=== PATIENT | female | born 1945 | race Caucasian/White ===

== ENCOUNTER → 2017-05-20 | Outpatient (CLI) | payer MEDICARE, SELFPAY | PROVIDERS: Visit Provider Nurse Practitioner | DX: E87.6 Hypokalemia (principal) | CPT/HCPCS: 36415; 80048 ==

== ENCOUNTER → 2017-05-25 | Outpatient (POV) | payer MEDICARE, SELFPAY | PROVIDERS: Family Provider Family Medicine; PCP Family Medicine; Visit Provider Internal Medicine | DX: C34.11 Malignant neoplasm of upper lobe, right bronchus or lung (principal) | CPT/HCPCS: 99214; 36415; 80053; 84443; 85025 ==

== ENCOUNTER 2017-06-09 10:05 | Outpatient (CLI) | payer MEDICARE, SELFPAY ==
[2017-06-09] VITALS (13 sets, daily range): BP systolic 88–129; BP diastolic 43–78; PULSE 70–84; RESP 16–18; TEMP 36.5; O2SAT 94; BMI 22.9
[2017-06-09 10:48] LABS: Basophils % 0.5 % (0.1-2.0); Eosinophils # 0.1 K/mm3 (0.0-0.4); Eosinophils % 2.2 % (0.1-12.0); Hematocrit 51.8 % (37.0-47.0); Lymphocytes # 1.1 K/mm3 (0.7-4.5); Lymphocytes % 16.4 K/mm3 (10-50); Mean Corpuscular HGB Conc 32.8 g/dL (31.8-35.4); Mean Corpuscular Hemoglobin 34.6 pg (27.0-31.2); Mean Corpuscular Volume 105.4 fl (81-99); Mean Platelet Volume 7.9 fl (7.4-10.4); Monocytes # 0.5 K/mm3 (0.1-1.0); Monocytes % 7.2 % (1.7-9.3); Neutrophils # 4.7 K/mm3 (1.8-7.8); Neutrophils % 73.7 % (37.0-80.0); Platelet Count 275 K/mm3 (142-424); Red Blood Count 4.92 M/mm3 (4.20-5.40); Red Cell Distribution Width 14.5 % (11.5-17.5); White Blood Count 6.4 K/mm3 (4.8-10.8)
[2017-06-09 10:58] LABS: Alanine Aminotransferase 17 U/L (12-78); Albumin Level 3.3 gm/dL (3.4-5.0); Albumin/Globulin Ratio 1.1 (1.1-1.8); Alkaline Phosphatase 85 U/L (46-116); Anion Gap 10.8 mEq/L (5-15); Aspartate Amino Transferase 16 U/L (15-37); Bilirubin,Total 0.5 mg/dL (0.2-1.0); Blood Urea Nitrogen 7 mg/dL (7-18); Calcium 8.9 mg/dL (8.5-10.1); Carbon Dioxide 30 mmol/L (21.0-32.0); Chloride 100 mmol/L (98-107); Creatinine Clearance Estimated 38 mL/min (0-300); Creatinine,Serum 0.54 mg/dL (0.55-1.02); Estimated Glomerular Filt Rate 111 ml/min (>60); GFR (African American) 134 ML/MIN (>60); Glucose 93 mg/dL (74-106); Potassium 3.8 mmoL/L (3.5-5.1); Sodium 137 mmol/L (136-145); Total Protein,Serum 6.3 gm/dL (6.4-8.2)
--- NOTE | 2017-06-09 12:42 | PC.NURSE ---
NIVOLUMAB 47 MG STARTED INFUSING AT THIS TIME (1200).
--- NOTE | 2017-06-09 15:48 | PC.NURSE ---
240 ML INFUSED INCLUDES NS, NIVOLUMAB, AND IPILIMUMAB.
== END 2017-06-09 15:15 | disposition home or self-care (01) ==
LOC: INF 12:07
PROVIDERS: Family Provider Family Medicine; PCP Family Medicine; Visit Provider Internal Medicine
DX: C34.90 Malignant neoplasm of unspecified part of unspecified bronchus or lung (principal); Z51.11 Encounter for antineoplastic chemotherapy
CPT/HCPCS: 80053; 85025; 96413; 96415; 96417; J9228; J9299

== ENCOUNTER → 2017-06-15 09:00 | Outpatient (CLI) | payer MEDICARE, SELFPAY ==
[2017-06-15 08:56] VITALS: BMI 22.5
[2017-06-15 09:13] LABS: Basophils % 0.5 % (0.1-2.0); Eosinophils # 0.2 K/mm3 (0.0-0.4); Eosinophils % 2.3 % (0.1-12.0); Hematocrit 51.5 % (37.0-47.0); Hemoglobin 16.7 g/dL (12.2-16.2); Lymphocytes # 1.1 K/mm3 (0.7-4.5); Lymphocytes % 14.2 K/mm3 (10-50); Mean Corpuscular HGB Conc 32.5 g/dL (31.8-35.4); Mean Corpuscular Hemoglobin 34.6 pg (27.0-31.2); Mean Corpuscular Volume 106.3 fl (81-99); Mean Platelet Volume 7.9 fl (7.4-10.4); Monocytes # 0.5 K/mm3 (0.1-1.0); Monocytes % 6.8 % (1.7-9.3); Neutrophils % 76.2 % (37.0-80.0); Platelet Count 284 K/mm3 (142-424); Red Blood Count 4.84 M/mm3 (4.20-5.40); Red Cell Distribution Width 14.6 % (11.5-17.5); White Blood Count 7.9 K/mm3 (4.8-10.8)
[2017-06-15 09:22] LABS: Alanine Aminotransferase 15 U/L (12-78); Albumin Level 3.3 gm/dL (3.4-5.0); Albumin/Globulin Ratio 1.1 (1.1-1.8); Alkaline Phosphatase 94 U/L (46-116); Anion Gap 10.4 mEq/L (5-15); Aspartate Amino Transferase 15 U/L (15-37); Bilirubin,Total 0.5 mg/dL (0.2-1.0); Blood Urea Nitrogen 7 mg/dL (7-18); Calcium 8.8 mg/dL (8.5-10.1); Carbon Dioxide 29 mmol/L (21.0-32.0); Chloride 98 mmol/L (98-107); Creatinine Clearance Estimated 37 mL/min (0-300); Creatinine,Serum 0.55 mg/dL (0.55-1.02); Estimated Glomerular Filt Rate 108 ml/min (>60); GFR (African American) 131 ML/MIN (>60); Globulin 3.1 gm/dl (1.3-3.2); Glucose 114 mg/dL (74-106); Potassium 3.4 mmoL/L (3.5-5.1); Sodium 134 mmol/L (136-145); Total Protein,Serum 6.4 gm/dL (6.4-8.2)
== END ==
PROVIDERS: Family Provider Family Medicine; PCP Family Medicine; Visit Provider Internal Medicine
DX: C34.90 Malignant neoplasm of unspecified part of unspecified bronchus or lung (principal); Z45.2 Encounter for adjustment and management of vascular access device
CPT/HCPCS: 80053; 85025; J1642

== ENCOUNTER 2017-06-29 09:40 | Outpatient (CLI) | payer MEDICARE, SELFPAY ==
[2017-06-29] VITALS (11 sets, daily range): BP systolic 102–117; BP diastolic 48–80; PULSE 72–84; RESP 18–20; TEMP 36.4–36.6; O2SAT 96–98; BMI 22.3
[2017-06-29 10:11] LABS: Basophils # 0.1 K/mm3 (0-0.2); Basophils % 0.7 % (0.1-2.0); Eosinophils # 0.2 K/mm3 (0.0-0.4); Eosinophils % 2.3 % (0.1-12.0); Hematocrit 52.4 % (37.0-47.0); Hemoglobin 16.8 g/dL (12.2-16.2); Lymphocytes # 1.2 K/mm3 (0.7-4.5); Lymphocytes % 17.6 K/mm3 (10-50); Mean Corpuscular Hemoglobin 33.9 pg (27.0-31.2); Mean Corpuscular Volume 105.9 fl (81-99); Monocytes # 0.4 K/mm3 (0.1-1.0); Monocytes % 6.2 % (1.7-9.3); Neutrophils % 73.3 % (37.0-80.0); Platelet Count 313 K/mm3 (142-424); Red Blood Count 4.95 M/mm3 (4.20-5.40); Red Cell Distribution Width 14.8 % (11.5-17.5); White Blood Count 6.8 K/mm3 (4.8-10.8)
[2017-06-29 10:25] LABS: Alanine Aminotransferase 20 U/L (12-78); Albumin Level 3.2 gm/dL (3.4-5.0); Alkaline Phosphatase 89 U/L (46-116); Aspartate Amino Transferase 15 U/L (15-37); Bilirubin,Total 0.5 mg/dL (0.2-1.0); Blood Urea Nitrogen 7 mg/dL (7-18); Calcium 8.9 mg/dL (8.5-10.1); Carbon Dioxide 28 mmol/L (21.0-32.0); Chloride 103 mmol/L (98-107); Creatinine Clearance Estimated 37 mL/min (0-300); Creatinine,Serum 0.45 mg/dL (0.55-1.02); Estimated Glomerular Filt Rate 137 ml/min (>60); GFR (African American) 165 ML/MIN (>60); Globulin 3.1 gm/dl (1.3-3.2); Glucose 94 mg/dL (74-106); Sodium 139 mmol/L (136-145); Total Protein,Serum 6.3 gm/dL (6.4-8.2)
== END 2017-06-29 14:15 | disposition home or self-care (01) ==
LOC: INF 10:35
PROVIDERS: Family Provider Family Medicine; PCP Family Medicine; Visit Provider Internal Medicine
DX: C34.90 Malignant neoplasm of unspecified part of unspecified bronchus or lung (principal); Z51.11 Encounter for antineoplastic chemotherapy
CPT/HCPCS: 80053; 85025; 96413; 96415; 96417; J9228; J9299

== ENCOUNTER → 2017-07-18 10:45 | Outpatient (POV) | payer MEDICARE, SELFPAY | PROVIDERS: PCP Family Medicine; Visit Provider Physician Assistant | DX: Z00.00 Encounter for general adult medical examination without abnormal findings (principal) ==

== ENCOUNTER 2017-07-25 08:45 | Outpatient (CLI) | payer MEDICARE, SELFPAY ==
[2017-07-25] VITALS (13 sets, daily range): BP systolic 88–116; BP diastolic 54–78; PULSE 72–110; RESP 18–20; TEMP 36.4; O2SAT 93–96; BMI 22.3
[2017-07-25 09:12] LABS: Basophils # 0.1 K/mm3 (0-0.2); Basophils % 0.7 % (0.1-2.0); Eosinophils # 0.2 K/mm3 (0.0-0.4); Eosinophils % 2.6 % (0.1-12.0); Hematocrit 52.4 % (37.0-47.0); Lymphocytes # 1.3 K/mm3 (0.7-4.5); Lymphocytes % 19.6 K/mm3 (10-50); Mean Corpuscular HGB Conc 32.5 g/dL (31.8-35.4); Mean Corpuscular Hemoglobin 34.7 pg (27.0-31.2); Mean Corpuscular Volume 106.7 fl (81-99); Mean Platelet Volume 7.7 fl (7.4-10.4); Monocytes # 0.5 K/mm3 (0.1-1.0); Monocytes % 7.6 % (1.7-9.3); Neutrophils # 4.5 K/mm3 (1.8-7.8); Neutrophils % 69.5 % (37.0-80.0); Platelet Count 304 K/mm3 (142-424); Red Blood Count 4.91 M/mm3 (4.20-5.40); Red Cell Distribution Width 14.9 % (11.5-17.5); White Blood Count 6.5 K/mm3 (4.8-10.8)
[2017-07-25 09:22] LABS: Alanine Aminotransferase 24 U/L (12-78); Albumin Level 3.2 gm/dL (3.4-5.0); Albumin/Globulin Ratio 0.9 (1.1-1.8); Alkaline Phosphatase 94 U/L (46-116); Anion Gap 14.8 mEq/L (5-15); Aspartate Amino Transferase 14 U/L (15-37); Bilirubin,Total 0.6 mg/dL (0.2-1.0); Blood Urea Nitrogen 8 mg/dL (7-18); Calcium 8.5 mg/dL (8.5-10.1); Carbon Dioxide 28 mmol/L (21.0-32.0); Chloride 100 mmol/L (98-107); Creatinine Clearance Estimated 37 mL/min (0-300); Creatinine,Serum 0.56 mg/dL (0.55-1.02); Estimated Glomerular Filt Rate 106 ml/min (>60); GFR (African American) 128 ML/MIN (>60); Globulin 3.4 gm/dl (1.3-3.2); Glucose 98 mg/dL (74-106); Potassium 3.8 mmoL/L (3.5-5.1); Sodium 139 mmol/L (136-145); Total Protein,Serum 6.6 gm/dL (6.4-8.2)
[2017-07-25 10:15] LABS: Thyroid Stimulating Hormone 5.83 uIU/ml (0.358-3.740)
== END 2017-07-25 14:45 | disposition home or self-care (01) ==
LOC: INF 10:46
PROVIDERS: Family Provider Family Medicine; PCP Family Medicine; Visit Provider Internal Medicine
DX: C34.90 Malignant neoplasm of unspecified part of unspecified bronchus or lung (principal); Z51.11 Encounter for antineoplastic chemotherapy; Z79.899 Other long term (current) drug therapy
CPT/HCPCS: 80053; 84443; 85025; 96413; 96415; 96417; J9228; J9299

== ENCOUNTER 2017-08-17 09:15 | Outpatient (CLI) | payer MEDICARE, SELFPAY ==
[2017-08-17] VITALS (9 sets, daily range): BP systolic 87–104; BP diastolic 42–53; PULSE 68–84; RESP 18; TEMP 36.6–36.7; O2SAT 95–96; BMI 22.3
[2017-08-17 09:43] LABS: Basophils % 0.5 % (0.1-2.0); Eosinophils # 0.2 K/mm3 (0.0-0.4); Eosinophils % 2.4 % (0.1-12.0); Hematocrit 51.3 % (37.0-47.0); Hemoglobin 16.9 g/dL (12.2-16.2); Lymphocytes # 1.4 K/mm3 (0.7-4.5); Lymphocytes % 19.4 K/mm3 (10-50); Mean Corpuscular Volume 106.1 fl (81-99); Mean Platelet Volume 7.7 fl (7.4-10.4); Monocytes # 0.5 K/mm3 (0.1-1.0); Neutrophils # 5.2 K/mm3 (1.8-7.8); Neutrophils % 70.7 % (37.0-80.0); Platelet Count 307 K/mm3 (142-424); Red Blood Count 4.83 M/mm3 (4.20-5.40); Red Cell Distribution Width 14.5 % (11.5-17.5); White Blood Count 7.4 K/mm3 (4.8-10.8)
[2017-08-17 10:03] LABS: Alanine Aminotransferase 15 U/L (12-78); Albumin Level 3.3 gm/dL (3.4-5.0); Alkaline Phosphatase 94 U/L (46-116); Aspartate Amino Transferase 15 U/L (15-37); Bilirubin,Total 0.4 mg/dL (0.2-1.0); Blood Urea Nitrogen 8 mg/dL (7-18); Calcium 8.8 mg/dL (8.5-10.1); Carbon Dioxide 28 mmol/L (21.0-32.0); Chloride 100 mmol/L (98-107); Creatinine Clearance Estimated 37 mL/min (0-300); Creatinine,Serum 0.44 mg/dL (0.55-1.02); Estimated Glomerular Filt Rate 140 ml/min (>60); GFR (African American) 170 ML/MIN (>60); Globulin 3.2 gm/dl (1.3-3.2); Glucose 88 mg/dL (74-106); Sodium 135 mmol/L (136-145); Thyroid Stimulating Hormone 9.67 uIU/ml (0.358-3.740); Total Protein,Serum 6.5 gm/dL (6.4-8.2)
== END 2017-08-17 14:40 | disposition home or self-care (01) ==
LOC: INF 09:39
PROVIDERS: Family Provider Family Medicine; PCP Family Medicine; Visit Provider Internal Medicine
DX: Z51.11 Encounter for antineoplastic chemotherapy (principal); C34.90 Malignant neoplasm of unspecified part of unspecified bronchus or lung; E03.9 Hypothyroidism, unspecified
CPT/HCPCS: 80053; 84443; 85025; 96413; 96415; 96417; J1642; J9228; J9299

== ENCOUNTER 2017-09-14 09:14 | Outpatient (CLI) | payer MEDICARE, SELFPAY ==
[2017-09-14 09:14] VITALS: BMI 22.3
[2017-09-14 09:42] LABS: Basophils % 0.5 % (0.1-2.0); Eosinophils # 0.4 K/mm3 (0.0-0.4); Eosinophils % 5.6 % (0.1-12.0); Hematocrit 51.8 % (37.0-47.0); Hemoglobin 16.9 g/dL (12.2-16.2); Lymphocytes % 15.3 K/mm3 (10-50); Mean Corpuscular HGB Conc 32.7 g/dL (31.8-35.4); Mean Corpuscular Hemoglobin 35.3 pg (27.0-31.2); Mean Corpuscular Volume 108.1 fl (81-99); Mean Platelet Volume 7.9 fl (7.4-10.4); Monocytes # 0.4 K/mm3 (0.1-1.0); Monocytes % 6.4 % (1.7-9.3); Neutrophils # 4.6 K/mm3 (1.8-7.8); Neutrophils % 72.2 % (37.0-80.0); Platelet Count 274 K/mm3 (142-424); Red Blood Count 4.79 M/mm3 (4.20-5.40); Red Cell Distribution Width 14.1 % (11.5-17.5); White Blood Count 6.3 K/mm3 (4.8-10.8)
[2017-09-14 10:19] LABS: Alanine Aminotransferase 20 U/L (12-78); Albumin Level 3.3 gm/dL (3.4-5.0); Alkaline Phosphatase 88 U/L (46-116); Anion Gap 11.8 mEq/L (5-15); Aspartate Amino Transferase 21 U/L (15-37); Bilirubin,Total 0.5 mg/dL (0.2-1.0); Blood Urea Nitrogen 7 mg/dL (7-18); Carbon Dioxide 28 mmol/L (21.0-32.0); Chloride 98 mmol/L (98-107); Creatinine Clearance Estimated 37 mL/min (0-300); Creatinine,Serum 0.43 mg/dL (0.55-1.02); Estimated Glomerular Filt Rate 144 ml/min (>60); GFR (African American) 174 ML/MIN (>60); Globulin 3.3 gm/dl (1.3-3.2); Glucose 95 mg/dL (74-106); Potassium 3.8 mmoL/L (3.5-5.1); Sodium 134 mmol/L (136-145); Total Protein,Serum 6.6 gm/dL (6.4-8.2)
[2017-09-14 10:24] LABS: Thyroid Stimulating Hormone 5.28 uIU/ml (0.358-3.740)
--- NOTE | 2017-09-14 11:31 | PC.NURSE ---
09/14/2017-1130, pt returned from clinic and md decided to hold treatment today because of her recent total weight loss. office to call with f/u appt when pt is to return for md appt. pt d/c'd home at this time per wc with daughter.
== END 2017-09-14 11:37 | disposition home or self-care (01) ==
LOC: INF 09:14
PROVIDERS: Family Provider Family Medicine; PCP Family Medicine; Visit Provider Internal Medicine
DX: C34.90 Malignant neoplasm of unspecified part of unspecified bronchus or lung (principal); Z79.899 Other long term (current) drug therapy
CPT/HCPCS: 80053; 84443; 85025; J1642

== ENCOUNTER 2017-11-07 10:43 | Outpatient (CLI) | payer MEDICARE, SELFPAY ==
[2017-11-07 10:45] VITALS: BMI 22.2
[2017-11-07 11:02] LABS: Basophils % 0.6 % (0.1-2.0); Eosinophils # 0.2 K/mm3 (0.0-0.4); Hematocrit 47.4 % (37.0-47.0); Hemoglobin 15.5 g/dL (12.2-16.2); Lymphocytes # 1.4 K/mm3 (0.7-4.5); Lymphocytes % 19.5 K/mm3 (10-50); Mean Corpuscular HGB Conc 32.6 g/dL (31.8-35.4); Mean Corpuscular Hemoglobin 34.1 pg (27.0-31.2); Mean Corpuscular Volume 104.5 fl (81-99); Mean Platelet Volume 7.4 fl (7.4-10.4); Monocytes # 0.5 K/mm3 (0.1-1.0); Monocytes % 7.2 % (1.7-9.3); Neutrophils # 4.8 K/mm3 (1.8-7.8); Neutrophils % 69.8 % (37.0-80.0); Platelet Count 290 K/mm3 (142-424); Red Blood Count 4.54 M/mm3 (4.20-5.40); Red Cell Distribution Width 14.1 % (11.5-17.5); White Blood Count 6.9 K/mm3 (4.8-10.8)
[2017-11-07 11:15] LABS: Alanine Aminotransferase 16 U/L (12-78); Albumin Level 3.4 gm/dL (3.4-5.0); Albumin/Globulin Ratio 1.1 (1.1-1.8); Alkaline Phosphatase 87 U/L (46-116); Anion Gap 10.1 mEq/L (5-15); Aspartate Amino Transferase 15 U/L (15-37); Bilirubin,Total 0.6 mg/dL (0.2-1.0); Blood Urea Nitrogen 7 mg/dL (7-18); Calcium 9.2 mg/dL (8.5-10.1); Carbon Dioxide 29 mmol/L (21.0-32.0); Chloride 98 mmol/L (98-107); Creatinine Clearance Estimated 37 mL/min (0-300); Creatinine,Serum 0.48 mg/dL (0.55-1.02); Estimated Glomerular Filt Rate 127 ml/min (>60); GFR (African American) 153 ML/MIN (>60); Globulin 3.1 gm/dl (1.3-3.2); Glucose 88 mg/dL (74-106); Potassium 4.1 mmoL/L (3.5-5.1); Sodium 133 mmol/L (136-145); Total Protein,Serum 6.5 gm/dL (6.4-8.2)
== END 2017-11-07 11:05 | disposition home or self-care (01) ==
LOC: INF 10:43
PROVIDERS: Family Provider Family Medicine; PCP Family Medicine; Visit Provider Internal Medicine
DX: C79.51 Secondary malignant neoplasm of bone; C34.90 Malignant neoplasm of unspecified part of unspecified bronchus or lung
CPT/HCPCS: 80053; 85025; J1642

== ENCOUNTER 2017-12-14 09:07 | Outpatient (CLI) | payer MEDICARE, SELFPAY ==
[2017-12-14 09:11] VITALS: BMI 22.3
[2017-12-14 09:39] LABS: Basophils % 0.5 % (0.1-2.0); Eosinophils # 0.2 K/mm3 (0.0-0.4); Hematocrit 43.6 % (37.0-47.0); Lymphocytes % 17.8 K/mm3 (10-50); Mean Corpuscular HGB Conc 32.1 g/dL (31.8-35.4); Mean Corpuscular Hemoglobin 33.9 pg (27.0-31.2); Mean Corpuscular Volume 105.6 fl (81-99); Mean Platelet Volume 8.3 fl (7.4-10.4); Monocytes # 0.3 K/mm3 (0.1-1.0); Monocytes % 5.8 % (1.7-9.3); Neutrophils # 4.2 K/mm3 (1.8-7.8); Neutrophils % 71.9 % (37.0-80.0); Platelet Count 203 K/mm3 (142-424); Red Blood Count 4.13 M/mm3 (4.20-5.40); Red Cell Distribution Width 14.8 % (11.5-17.5); White Blood Count 5.8 K/mm3 (4.8-10.8)
[2017-12-14 09:53] LABS: Alanine Aminotransferase 16 U/L (12-78); Albumin Level 3.1 gm/dL (3.4-5.0); Alkaline Phosphatase 75 U/L (46-116); Anion Gap 9.8 mEq/L (5-15); Aspartate Amino Transferase 14 U/L (15-37); Bilirubin,Total 0.6 mg/dL (0.2-1.0); Blood Urea Nitrogen 6 mg/dL (7-18); Calcium 8.6 mg/dL (8.5-10.1); Carbon Dioxide 27 mmol/L (21.0-32.0); Chloride 102 mmol/L (98-107); Creatinine Clearance Estimated 37 mL/min (0-300); Creatinine,Serum 0.47 mg/dL (0.55-1.02); Estimated Glomerular Filt Rate 130 ml/min (>60); GFR (African American) 157 ML/MIN (>60); Globulin 3.1 gm/dl (1.3-3.2); Glucose 96 mg/dL (74-106); Potassium 3.8 mmoL/L (3.5-5.1); Sodium 135 mmol/L (136-145); Total Protein,Serum 6.2 gm/dL (6.4-8.2)
== END 2017-12-14 09:30 | disposition home or self-care (01) ==
LOC: INF 09:07
PROVIDERS: Family Provider Family Medicine; PCP Family Medicine; Visit Provider Internal Medicine
DX: C34.90 Malignant neoplasm of unspecified part of unspecified bronchus or lung (principal)
CPT/HCPCS: 80053; 85025; J1642

== ENCOUNTER → 2017-12-22 08:38 | Outpatient (CLI) | payer MEDICARE, SELFPAY ==
--- NOTE | 2017-12-22 08:52 | CT_ITS ---
CT abdomen pelvis w con INDICATION: ITS.REASON: SMALL CELLCA ORDERING PHYSICIAN: Sg Bonilla MD PATIENT AGE: 72 years COMPARISON: December 24, 2016 PROCEDURE: Oral Contrast: Redicat utilized IV Contrast: 75 cc Isovue-370 TECHNIQUE: Following 75 cc Isovue-370 scanning was performed the chest & subsequent the abdomen.. Sagittal and coronal reformatted images are performed and reviewed. All CT scans at the facility use one or more dose reduction, viz: automated exposure control; ma/kV adjustment per patient size (including targeted exams where dose is matched to indication; i.e. head); or iterative reconstruction technique. FINDINGS: Lung bases. Blunting right CP angle with trace pleural fluid or thickening at this the posterior right lung base, posterior sulcus region. Additional linear scarring and atelectasis here versus prior study. No focal lung mass lesion however at the posterior sulcus. Left lung bases clear. Heart normal size. Abdomen.-- Liver. No liver lesions. No biliary ductal dilatation. Cholecystectomy pancreas appears normal. The slightly generous common duct reflects previous cholecystectomy. Spleen unremarkable. New Right Adrenal Mass measuring 22 mm AP x 16 mm transverse.. The left adrenal appears stable plump but within normal limits. . Diffuse calcified aorta with minor early dilatation infrarenal abdominal aorta up to 2.7 m diameter. There is irregular calcified plaque at the posterior aspect where it is most dilated. Mildly stenotic calcified plaque at the common iliac arteries. Likely up to 30-40% stenosis. Even more pronounced plaque at the external iliac artery on right more than left.. There is also extensive dense calcification origin of SMA noted. Oral contrast was administered well and advanced as moved through the small bowel and outlines the entire colon.. There is moderate stool in the colon. Diverticulosis most evident sigmoid colon. No diverticulitis. No bowel dilatation nor obstruction or lesion. The large bowel. Is seen to the right of midline. But apparently there is been a right hemicolectomy with anastomosis here. This area unremarkable otherwise. Moderate stool. The small bowel is generous in caliber throughout but with no significant findings. Moderate fluid. No free fluid in the abdomen or pelvis with no significant pelvic nor retroperitoneal nor mesenteric adenopathy. Osseous structures, no evidence of metastatic disease. Levoscoliosis and multilevel degenerative disc changes spine again observed. IMPRESSION......... 1. New right adrenal nodule/mass measuring up to 2.2 cm 2.Otherwise no significant change in the abdomen since November 2016.. 2. Minor blunting right posterior sulcus due to scant pleural fluid or thickening. Additional atelectasis & scarring right base vs prior 2017 CT studies
--- NOTE | 2017-12-22 08:52 | CT_ITS ---
CT chest w con HISTORY: Lung cancer ITS.REASON: SMALL CELL CA ORDERING PHYSICIAN: Sg Bonilla MD PATIENT AGE: 72 years COMPARISON: CT chest 02/23/2017 & December 24, 2016 Technique: Axial images obtained. Following bolus administration of 75 cc of Isovue-370 Sagittal and coronal reformatted images are also generated and reviewed. All CT scans at the facility use one or more dose reduction, viz: automated exposure control; ma/kV adjustment per patient size (including targeted exams where dose is matched to indication; i.e. head); or iterative reconstruction technique. FINDINGS: RIGHT LUNG The rather linear right upper lobe nodule is very slightly since smaller. Although similar just over 14 mmlength it measures only 6.3 mm AP today The cavitary area at the posterior most aspect of RLL has shown significant regression with minimal residual. It is best seen on sagittal image 35, but is significantly smaller, with minimal residual. On these sagittal images as well as Axial slice 47 in 48. Previously this over 16 mm.. Today scant residual 7 mm height scarring posteriorly A bleb measuring 16 mm at the periphery of the right midlung is again noted but with less 15 at its margins. The bleb itself is slightly larger measuring 16 mm transverse 18 mm AP. Continuing inferiorly there was a 7.3 x 5.6 mm nodule at the right lower lobe which is now barely appreciable. This was just posterior to the major fissure and demonstrates only very tiny 3 mm residual on sagittal image 25 LEFT LUNG:. No nodules are seen at left lung. RIGHT JACLYN.: There is a new 2 cm nodular density, lymph node at the inferior right jaclyn which is developed since previous studies. This yields slight additional fullness throughout the right infrahilar region, as seen on coronal image 32 axial slice 46, 47 LEFT JACLYN: remains normal. No adenopathy. MEDIASTINUM. Only scattered small nodes no dominant nodule or mass or pathologic adenopathy. The There are centrilobular emphysematous changes. . There is blunting at right CP angle with a scant right pleural effusion vs trace pleural thickening posteriorly. Also Additional linear scarring and atelectasis in this region versus prior study. . Left subclavian central catheter is present with the tip region superior vena cava. Stable degenerative changes thoracicspine. No destructive process at the spine nor chest wall . No chest wall lesions evident There are coronary artery calcifications. Normal heart.No obvious pericardial effusion Prominent atherosclerotic calcification origin of great vessel particularly proximal left subclavian and right brachiocephalic arteries. size. . New Right Adrenal Nodule/Mass measures 22 mm AP, 22 mm height, 6 mm transverse. Left adrenal appears stable. Limbs of left adrenal is generous but appears unchanged. No definitive mass or nodule. The uppermost images of liver unremarkable. IMPRESSION:-------- 1. Regression & improvement of right lung pulmonary nodules since Jan 2017 2. However there is prominent New 2 cm Mass at Right Infrahilar Region.. 3. New Right Adrenal Nodule/Mass measures 22 mm 4. Blunting right CP angle with additional trace right pleural effusion or thickening. Additional linear atelectasis and scarring posterior right lung base. 5 underlying centrilobular emphysematous changes.
== END ==
PROVIDERS: Family Provider Family Medicine; PCP Family Medicine; Visit Provider Internal Medicine
DX: Z03.89 Encounter for observation for other suspected diseases and conditions ruled out (principal); C34.90 Malignant neoplasm of unspecified part of unspecified bronchus or lung
CPT/HCPCS: 71260; 74177; Q9967

== ENCOUNTER 2018-01-02 09:58 | Outpatient (CLI) | payer MEDICARE, SELFPAY ==
[2018-01-02 10:03] VITALS: BMI 22.3
[2018-01-02 10:25] LABS: Basophils % 0.6 % (0.1-2.0); Eosinophils # 0.1 K/mm3 (0.0-0.4); Eosinophils % 1.6 % (0.1-12.0); Hematocrit 40.9 % (37.0-47.0); Hemoglobin 13.3 g/dL (12.2-16.2); Lymphocytes % 18.9 K/mm3 (10-50); Mean Corpuscular HGB Conc 32.5 g/dL (31.8-35.4); Mean Corpuscular Hemoglobin 34.8 pg (27.0-31.2); Mean Corpuscular Volume 107.3 fl (81-99); Mean Platelet Volume 8.1 fl (7.4-10.4); Monocytes # 0.4 K/mm3 (0.1-1.0); Monocytes % 7.3 % (1.7-9.3); Neutrophils # 3.6 K/mm3 (1.8-7.8); Neutrophils % 71.6 % (37.0-80.0); Platelet Count 238 K/mm3 (142-424); Red Blood Count 3.81 M/mm3 (4.20-5.40); Red Cell Distribution Width 15.3 % (11.5-17.5); White Blood Count 5.1 K/mm3 (4.8-10.8)
[2018-01-02 10:34] LABS: Alanine Aminotransferase 17 U/L (12-78); Albumin Level 3.1 gm/dL (3.4-5.0); Alkaline Phosphatase 76 U/L (46-116); Aspartate Amino Transferase 16 U/L (15-37); Bilirubin,Total 0.5 mg/dL (0.2-1.0); Blood Urea Nitrogen 10 mg/dL (7-18); Calcium 8.7 mg/dL (8.5-10.1); Carbon Dioxide 27 mmol/L (21.0-32.0); Chloride 106 mmol/L (98-107); Creatinine Clearance Estimated 37 mL/min (0-300); Creatinine,Serum 0.53 mg/dL (0.55-1.02); Estimated Glomerular Filt Rate 113 ml/min (>60); GFR (African American) 137 ML/MIN (>60); Globulin 3.1 gm/dl (1.3-3.2); Glucose 84 mg/dL (74-106); Sodium 139 mmol/L (136-145); Total Protein,Serum 6.2 gm/dL (6.4-8.2)
[2018-01-02 13:03] VITALS: BP 110/54; PULSE 71; RESP 18; TEMP 36.4; O2SAT 96
[2018-01-02 13:33] VITALS: BP 109/56; PULSE 70; RESP 18; O2SAT 96
[2018-01-02 14:03] VITALS: BP 106/57; PULSE 72; RESP 18; O2SAT 97
[2018-01-02 14:33] VITALS: BP 108/58; PULSE 76; RESP 18; O2SAT 96
[2018-01-02 14:50] VITALS: BP 105/59; PULSE 71; RESP 18; O2SAT 96
== END 2018-01-02 15:00 | disposition home or self-care (01) ==
LOC: INF 09:58
PROVIDERS: Family Provider Family Medicine; PCP Family Medicine; Visit Provider Internal Medicine
DX: Z51.11 Encounter for antineoplastic chemotherapy (principal); C34.90 Malignant neoplasm of unspecified part of unspecified bronchus or lung
CPT/HCPCS: 80053; 85025; 96413; 96415; J9206; Q0166

== ENCOUNTER 2018-01-18 08:55 | Outpatient (CLI) | payer MEDICARE, SELFPAY ==
[2018-01-18] VITALS (8 sets, daily range): BP systolic 92–124; BP diastolic 39–88; PULSE 60–72; RESP 18; TEMP 36.7; BMI 22.0
[2018-01-18 09:36] LABS: Basophils % 0.5 % (0.1-2.0); Eosinophils # 0.2 K/mm3 (0.0-0.4); Eosinophils % 4.1 % (0.1-12.0); Hematocrit 39.6 % (37.0-47.0); Lymphocytes # 0.9 K/mm3 (0.7-4.5); Lymphocytes % 15.8 K/mm3 (10-50); Mean Corpuscular HGB Conc 32.9 g/dL (31.8-35.4); Mean Corpuscular Hemoglobin 35.9 pg (27.0-31.2); Mean Corpuscular Volume 109.1 fl (81-99); Mean Platelet Volume 7.8 fl (7.4-10.4); Monocytes # 0.4 K/mm3 (0.1-1.0); Neutrophils % 72.6 % (37.0-80.0); Platelet Count 257 K/mm3 (142-424); Red Blood Count 3.63 M/mm3 (4.20-5.40); Red Cell Distribution Width 15.4 % (11.5-17.5); White Blood Count 5.5 K/mm3 (4.8-10.8)
[2018-01-18 09:50] LABS: Alanine Aminotransferase 16 U/L (12-78); Albumin Level 3.3 gm/dL (3.4-5.0); Albumin/Globulin Ratio 1.2 (1.1-1.8); Alkaline Phosphatase 72 U/L (46-116); Anion Gap 10.1 mEq/L (5-15); Aspartate Amino Transferase 13 U/L (15-37); Bilirubin,Total 0.4 mg/dL (0.2-1.0); Blood Urea Nitrogen 9 mg/dL (7-18); Calcium 8.7 mg/dL (8.5-10.1); Carbon Dioxide 26 mmol/L (21.0-32.0); Chloride 103 mmol/L (98-107); Creatinine Clearance Estimated 37 mL/min (0-300); Creatinine,Serum 0.56 mg/dL (0.55-1.02); Estimated Glomerular Filt Rate 106 ml/min (>60); GFR (African American) 128 ML/MIN (>60); Globulin 2.7 gm/dl (1.3-3.2); Glucose 90 mg/dL (74-106); Potassium 4.1 mmoL/L (3.5-5.1); Sodium 135 mmol/L (136-145)
== END 2018-01-18 13:00 | disposition home or self-care (01) ==
LOC: INF 08:55
PROVIDERS: Family Provider Family Medicine; PCP Family Medicine; Visit Provider Internal Medicine
DX: Z51.11 Encounter for antineoplastic chemotherapy (principal); C34.90 Malignant neoplasm of unspecified part of unspecified bronchus or lung
CPT/HCPCS: 80053; 85025; 96413; 96415; J9206; Q0166

== ENCOUNTER 2018-03-02 09:17 | Outpatient (CLI) | payer MEDICARE, SELFPAY ==
[2018-03-02 09:23] VITALS: BMI 22.0
[2018-03-02 09:49] LABS: Basophils % 0.3 % (0.1-2.0); Eosinophils # 0.1 K/mm3 (0.0-0.4); Hematocrit 38.9 % (37.0-47.0); Hemoglobin 12.3 g/dL (12.2-16.2); Lymphocytes # 0.7 K/mm3 (0.7-4.5); Lymphocytes % 13.8 K/mm3 (10-50); Mean Corpuscular HGB Conc 31.7 g/dL (31.8-35.4); Mean Corpuscular Volume 110.3 fl (81-99); Mean Platelet Volume 7.8 fl (7.4-10.4); Monocytes # 0.4 K/mm3 (0.1-1.0); Monocytes % 7.6 % (1.7-9.3); Neutrophils # 4.2 K/mm3 (1.8-7.8); Neutrophils % 76.4 % (37.0-80.0); Platelet Count 253 K/mm3 (142-424); Red Blood Count 3.53 M/mm3 (4.20-5.40); Red Cell Distribution Width 15.2 % (11.5-17.5); White Blood Count 5.4 K/mm3 (4.8-10.8)
[2018-03-02 10:02] LABS: Alanine Aminotransferase 14 U/L (12-78); Albumin Level 3.1 gm/dL (3.4-5.0); Albumin/Globulin Ratio 1.1 (1.1-1.8); Alkaline Phosphatase 72 U/L (46-116); Aspartate Amino Transferase 17 U/L (15-37); Bilirubin,Total 0.4 mg/dL (0.2-1.0); Blood Urea Nitrogen 11 mg/dL (7-18); Calcium 8.6 mg/dL (8.5-10.1); Carbon Dioxide 27 mmol/L (21.0-32.0); Chloride 103 mmol/L (98-107); Creatinine Clearance Estimated 37 mL/min (0-300); Creatinine,Serum 0.49 mg/dL (0.55-1.02); Estimated Glomerular Filt Rate 124 ml/min (>60); GFR (African American) 150 ML/MIN (>60); Globulin 2.9 gm/dl (1.3-3.2); Glucose 99 mg/dL (74-106); Sodium 138 mmol/L (136-145)
== END 2018-03-02 09:35 | disposition home or self-care (01) ==
LOC: INF 09:17
PROVIDERS: Family Provider Family Medicine; PCP Family Medicine; Visit Provider Internal Medicine Medical Oncology
DX: C34.90 Malignant neoplasm of unspecified part of unspecified bronchus or lung (principal)
CPT/HCPCS: 80053; 85025; J1642

== ENCOUNTER 2018-03-13 10:16 | Outpatient (CLI) | payer MEDICARE, SELFPAY ==
[2018-03-13 09:42] VITALS: BMI 22.0
[2018-03-13 10:19] LABS: Basophils % 0.6 % (0.1-2.0); Eosinophils # 0.1 K/mm3 (0.0-0.4); Eosinophils % 2.3 % (0.1-12.0); Hematocrit 37.6 % (37.0-47.0); Lymphocytes # 0.8 K/mm3 (0.7-4.5); Lymphocytes % 12.8 K/mm3 (10-50); Mean Corpuscular Hemoglobin 35.6 pg (27.0-31.2); Mean Corpuscular Volume 111.2 fl (81-99); Mean Platelet Volume 8.1 fl (7.4-10.4); Monocytes # 0.4 K/mm3 (0.1-1.0); Neutrophils % 78.4 % (37.0-80.0); Platelet Count 277 K/mm3 (142-424); Red Blood Count 3.38 M/mm3 (4.20-5.40); Red Cell Distribution Width 14.9 % (11.5-17.5); White Blood Count 6.4 K/mm3 (4.8-10.8)
--- NOTE | 2018-03-13 10:19 | CT_ITS ---
CT chest w con HISTORY: Follow-up lung cancer ITS.REASON: lung cancer ORDERING PHYSICIAN: Ninoska Post MD PATIENT AGE: 72 years COMPARISON: 01/13/2018 TECHNIQUE: Axial images obtained following the administration of 75 mL of Isovue 370 . Sagittal, and coronal reformatted images are also generated and reviewed. All CT scans at the facility use one or more dose reduction, viz: automated exposure control, ma/kV adjustment per patient size (including targeted exams where dose is matched to indication, i.e. head), or iterative reconstruction technique. FINDINGS: The right infrahilar lymph node is slightly larger measuring 2.3 x 2 cm previously at 1.9 x 1.5 cm. Nodular opacity in right upper lobe is not significant changed at 1.3 x 0.5 cm. No mediastinal mass or adenopathy. No evidence of aortic aneurysm or dissection. No evidence of central pulmonary embolus. Extensive coronary artery calcifications are present. There are centrilobular emphysematous changes with pulmonary fibrotic changes. There is trace right-sided effusion with mild atelectatic changes in the right lung base posteriorly. Atelectatic changes are present in the superior segment of the right lower lobe There is a 4 mm nodule in the right lung base posteriorly not readily apparent on the previous study. A 4 mm nodule is present in the right lower lobe anteriorly which is unchanged. No acute bony anomalies. 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 IMPRESSION: 1. The right infrahilar lymph node is slightly larger. 2. Trace right pleural effusion with right basilar atelectasis has developed. 3. 4 mm nodule in the right lung base posteriorly not readily apparent on the previous study. 4. No change irregularity nodular opacity right upper lobe medially
--- NOTE | 2018-03-13 10:19 | CT_ITS ---
CT abdomen pelvis w con CLINICAL INDICATION: Follow-up lung cancer, right adrenal mass, metastatic disease ITS.REASON: lung cancer ORDERING PHYSICIAN: Ninoska Post MD PATIENT AGE: 72 years COMPARISON: 12/22/2017 TECHNIQUE: Axial images obtained with sagittal and coronal reformats. All CT scans at the facility use one or more dose reduction, viz: automated exposure control, ma/kV adjustment per patient size (including targeted exams where dose is matched to indication, i.e. head), or iterative reconstruction technique. PROCEDURE: Oral Contrast: Redicat IV Contrast: 75 mL's of Isovue-370. FINDINGS: There has been prior cholecystectomy. The liver, spleen, left adrenal gland, pancreas, and kidneys have an unremarkable appearance. Right adrenal mass is once again noted measuring 2.9 x 2.1 cm previously 2.2 x 1.6 cm. No intestinal obstruction or free air. There is diverticulosis of the descending and sigmoid colon. No evidence of diverticulitis. There has been prior hysterectomy. No pelvic mass apparent. No ascites. No evidence of appendicitis. No acute bony anomalies. There is diffuse atheromatous changes of the aorta and iliac vessels with mild dilatation of the infrarenal abdominal aorta at 2.4 cm. IMPRESSION: 1. Enlarging right adrenal mass consistent with metastatic disease. 2. Other nonacute findings as described above
[2018-03-13 10:32] LABS: Alanine Aminotransferase 15 U/L (12-78); Albumin Level 2.7 gm/dL (3.4-5.0); Albumin/Globulin Ratio 0.9 (1.1-1.8); Alkaline Phosphatase 69 U/L (46-116); Anion Gap 6.6 mEq/L (5-15); Aspartate Amino Transferase 24 U/L (15-37); Bilirubin,Total 0.4 mg/dL (0.2-1.0); Blood Urea Nitrogen 9 mg/dL (7-18); Calcium 8.4 mg/dL (8.5-10.1); Carbon Dioxide 27 mmol/L (21.0-32.0); Chloride 102 mmol/L (98-107); Creatinine Clearance Estimated 37 mL/min (0-300); Creatinine,Serum 0.46 mg/dL (0.55-1.02); Estimated Glomerular Filt Rate 133 ml/min (>60); GFR (African American) 161 ML/MIN (>60); Glucose 84 mg/dL (74-106); Potassium 4.1 mmoL/L (3.5-5.1); Sodium 136 mmol/L (136-145); Total Protein,Serum 5.7 gm/dL (6.4-8.2)
[2018-03-13 10:40] LABS: Thyroid Stimulating Hormone 1.71 uIU/ml (0.358-3.740)
--- NOTE | 2018-03-13 12:25 | PC.NURSE ---
PT WAS HERE FOR CT SCAN AND PORT TO GET ACCESSED ; PORT WAS EASILY ACCESSED BUT UNABLE TO GET BLOOD RETURN; INSTILLED CATH MAAME INTO PAC AFTER PATIENT CAME BACK FROM CT; PT LEFT AND RETURNED A HOUR LATER; BLOOD RETURN WAS VERIFIED; FLUSHED WITH HEPARIN AND DEACCESSED PORT;
[2018-03-13 12:30] VITALS: BP 118/70; PULSE 68; RESP 20; TEMP 36.9; O2SAT 96
== END 2018-03-13 12:25 | disposition home or self-care (01) ==
LOC: RAD 10:16
PROVIDERS: Family Provider Family Medicine; PCP Family Medicine; Visit Provider Internal Medicine Medical Oncology
DX: C34.90 Malignant neoplasm of unspecified part of unspecified bronchus or lung (principal); Z79.899 Other long term (current) drug therapy
CPT/HCPCS: 71260; 74177; 80053; 84443; 85025; J1642; Q9967